=== PATIENT | female | born 1995 | race Caucasian/White ===

== ENCOUNTER 2019-01-15 04:31 | Emergency (ER) | payer OTHER ==
[2019-01-15] MEDS ORDERED: KETOROLAC TROMETHAMINE INJ/PF 30 MG/1 ML SDV IV ONE (04:52)
--- NOTE | 2019-01-15 04:58 | ER Document Report ---
HPI - HPI Time Seen by Provider: 01/15/19 04:45 Pain Level: 4 Context: Patient is a 23-year-old female that comes to the emergency department with chief complaint of sore throat and difficulty swallowing. She states that 2 days ago she was running fevers along with a sore throat as well, she states that she was seen by urgent care, had a negative strep throat test, and was placed on prednisone and Augmentin, she states she felt better after a dose of prednisone and 2 doses of Augmentin, however she woke up tonight feeling like her throat was significantly worse and she was having trouble swallowing. She denies abdominal pain, vomiting, difficulty breathing, inability to swallow, or any other complaints at this time. She denies any daily medications other than cyclobenzaprine, she denies . She denies any past medical history. at bedside. - REPRODUCTIVE LMP: curent Reproductive: DENIES: : Past Medical History - General Information source: Patient - Social History Smoking Status: Never Smoker Frequency of alcohol use: None Drug Abuse: None Lives with: Family Family History: Reviewed & Not Pertinent Patient has suicidal ideation: No Patient has homicidal ideation: No - Medical History Medical History: Negative Surgical Hx: Negative - Immunizations Immunizations up to date: Yes Hx Diphtheria, Pertussis, Tetanus Vaccination: Yes Vertical Provider Document - CONSTITUTIONAL General Appearance: WD/WN, No Apparent Distress - INFECTION CONTROL TRAVEL OUTSIDE OF THE [place] IN LAST 30 DAYS: No - HEENT HEENT: Atraumatic, Normocephalic. negative: Normal ENT Exam - Erythema with tonsillar swelling but not exudates noted over the tonsils and the uvula, no swelling suggesting abscess, patent airway. Normal tongue, normal ENT exam otherwise. Normal ears, sinuses, nasal passages, eyes. - NECK Neck: Other - Notable anterior cervical lymphadenopathy bilaterally, this is very noticeable but is not severely tender, no submandibular swelling. - RESPIRATORY Respiratory: Breath Sounds Normal, No Respiratory Distress - CARDIOVASCULAR Cardiovascular: Regular Rate, Regular Rhythm - GI/ABDOMEN Gastrointestinal: Abdomen Soft, Abdomen Non-Tender - BACK Back: Normal Inspection - MUSCULOSKELETAL/EXTREMETIES Musculoskeletal/Extremeties: MAEW, FROM, Non-Tender - NEURO Level of Consciousness: Awake, Alert, Appropriate - DERM Integumentary: Warm, Dry, No Rash Course - Re-evaluation Re-evalutation: Patient has tonsillitis, pharyngitis, rash over the uvula, but patent airway, able to swallow, no signs of peritonsillar abscess or Pepito's angina. Patient is actually quite well-appearing. She does have notable anterior cervical adenopathy. I do not appreciate a swollen spleen. No abdominal tenderness noted. She had a negative strep test. Given Toradol, this did seem to help patient. CBC unremarkable. test is negative. Mononucleosis test is positive. This is consistent with patient's presentation. I discussed in detail with patient. Patient will be given dexamethasone IV so she can stop her prednisone, patient also will be stopping her Augmentin after discussion, she states it was giving her diarrhea already. Discussed expectations, precautions, follow-up, and return precautions. Patient states appreciation and agreement. Stable at time of discharge. - Vital Signs Vital signs: Temp Pulse Resp BP Pulse Ox 97.3 F 73 16 124/70 100 01/15/19 04:37 01/15/19 04:37 01/15/19 04:37 01/15/19 04:37 01/15/19 04:37 - Laboratory Result Diagrams: 01/15/19 05:16 Discharge - Discharge Clinical Impression: Anterior cervical lymphadenopathy Mononucleosis Qualifiers: Infectious mononucleosis etiology: unspecified organism Infectious mononucleosis complication: without complication Qualified Code(s): B27.90 - Infectious mononucleosis, unspecified without complication Pharyngitis Qualifiers: Pharyngitis/tonsillitis etiology: unspecified etiology Qualified Code(s): J02.9 - Acute pharyngitis, unspecified Condition: Stable Disposition: HOME, SELF-CARE Additional Instructions: You have mononucleosis "mono". This is a viral illness that takes time to respond. You have been treated with dexamethasone which should help with the symptoms, drink plenty of fluids, rest, take Tylenol and ibuprofen for fever and pain. This can cause swelling of the spleen so you should follow contact precautions for the next 2 to 3 weeks with the potential complication of a ruptured spleen if you have trauma to the belly. This is contagious to avoid other people if possible especially while you are running fevers. Follow-up with primary care. Come back if you are worse including confusion, severe headache or pain in your neck, developing or severe abdominal pain, or any other concerning or worsening symptoms.
[2019-01-15 05:24] LABS: ABSOLUTE BASOPHILS # (AUTO) 0.1 10^3/uL (0.0-0.2); ABSOLUTE EOSINOPHILS # (AUTO) 0.5 10^3/uL (0.0-0.6); ABSOLUTE LYMPHOCYTES (AUTO) 2.9 10^3/uL (0.5-4.7); ABSOLUTE MONOCYTES (AUTO) 0.8 10^3/uL (0.1-1.4); ABSOLUTE NEUT (AUTO) 4.8 10^3/uL (1.7-8.2); BASOPHILS % (AUTO) 0.7 % (0-2); EOSINOPHILS % (AUTO) 5.1 % (0-6); HEMATOCRIT 35.5 % (36.0-47.0); LYMPHOCYTES % (AUTO) 32.1 % (13-45); MEAN CORPUSCULAR HEMOGLOBIN 28.2 pg (27.0-33.4); MEAN CORPUSCULAR HGB CONC 33.8 g/dL (32.0-36.0); MEAN CORPUSCULAR VOLUME 84 fl (80-97); MONOCYTES % (AUTO) 8.6 % (3-13); PLATELET COUNT 192 10^3/uL (150-450); RED BLOOD COUNT 4.25 10^6/uL (3.72-5.28); SEGMENTED NEUTROPHILS % (AUTO) 53.5 % (42-78); TOTAL CELLS COUNTED % (AUTO) 100 %; WHITE BLOOD COUNT 8.9 10^3/uL (4.0-10.5)
[2019-01-15] MEDS ORDERED: DEXAMETHASONE SOD PHOS INJ 10 MG/1 ML VIAL IV ONE (05:56)
[2019-01-15 06:23] VITALS: BP 111/77
== END 2019-01-15 06:29 | disposition home or self-care (01) ==
LOC: ER 04:31
DX: B27.90 Infectious mononucleosis, unspecified without complication (principal); J02.9 Acute pharyngitis, unspecified; R13.10 Dysphagia, unspecified
CPT/HCPCS: 36415; 84703; 85025; 86308; J1885; J1100

== ENCOUNTER 2019-01-17 10:10 | Emergency (ER) | payer OTHER ==
[2019-01-17] MEDS ORDERED: DIPHENHYDRAMINE HCL 50 MG/ML VIAL IV ONE (10:25)
[2019-01-17] MEDS ORDERED: FAMOTIDINE INJ/PF 20 MG/2 ML SDV IV ONE (10:25)
--- NOTE | 2019-01-17 10:28 | ER Document Report ---
ED Medical Screen (RME) - General Stated Complaint: FACIAL SWELLING, POSSIBLE RASH TRAVEL OUTSIDE OF THE [place] IN LAST 30 DAYS: No - HPI Notes: 01/17/19 10:26 Patient is a 23-year-old female no significant past medical history recently diagnosed with mono 2 days ago who presents complaining of swelling of the lips, face, ears, and scratchiness in her mouth and throat that started yesterday. Patient was given Decadron as well 2 days ago and stopped taking Augmentin at that time. She is able to eat and drink without difficulty otherwise. She has not had any wheezing. Denies WINSTON, fever, neck pain, URI, CP, SOB, Abd pain, dysuria, back pain. I have treated and performed a rapid initial assessment of this patient. A comprehensive ED assessment and evaluation of the patient, analysis of test results and completion of medical decision making process will be conducted by additional ED providers. PHYSICAL EXAMINATION: GENERAL: Well-appearing, well-nourished and in no acute distress. A&Ox4. Answers questions appropriately. LUNGS: Breath sounds clear to auscultation bilaterally and equal. No wheezes rales or rhonchi. HEART: Regular rate and rhythm without murmurs, rubs, gallops. HEENT: + swelling noted to the lips, ears, face. No obvious airway compromise. No protrusion of tongue. 2+ tonsilar hypertrophy. Past Medical History - Immunizations Immunizations up to date: Yes Hx Diphtheria, Pertussis, Tetanus Vaccination: Yes Physical Exam - Vital signs Vitals: Temp Pulse Resp BP Pulse Ox 98.6 F 85 18 126/75 H 100 01/17/19 10:14 01/17/19 10:14 01/17/19 10:14 01/17/19 10:14 01/17/19 10:14 Course - Vital Signs Vital signs: Temp Pulse Resp BP Pulse Ox 98.6 F 85 18 126/75 H 100 01/17/19 10:14 01/17/19 10:14 01/17/19 10:14 01/17/19 10:14 01/17/19 10:14
[2019-01-17] MEDS ORDERED: NORMAL SALINE 1000 ML 1,000 ML IV ONE (11:21)
[2019-01-17] MEDS ORDERED: METHYLPREDNISOLONE INJ 125 MG/2 ML SDV IV ONE (11:21)
--- NOTE | 2019-01-17 11:28 | ER Document Report ---
ED General - General Chief Complaint: Facial Swelling Stated Complaint: FACIAL SWELLING, POSSIBLE RASH Time Seen by Provider: 01/17/19 11:21 Notes: Patient is here because of facial swelling and rash. Patient was seen for a pharyngitis at a local urgent care on Sunday and was put on Augmentin. She came here on early Sunday morning and was told that she has mono. She was given some Decadron while here and stopped her Augmentin, but no other medications prescribed. Patient noticed her face was swelling yesterday morning and then she developed this rash around her cheeks last night. She does not have any worsening breathing or difficulty swallowing. Says she is drinking liquids. Voice is normal. Not sure if running a fever. TRAVEL OUTSIDE OF THE [place] IN LAST 30 DAYS: No - Related Data Allergies/Adverse Reactions: No Known Allergies Allergy (Unverified 01/17/19 10:33) Past Medical History - Social History Smoking Status: Never Smoker Chew tobacco use (# tins/day): No Family History: Reviewed & Not Pertinent Patient has suicidal ideation: No Patient has homicidal ideation: No - Immunizations Immunizations up to date: Yes Hx Diphtheria, Pertussis, Tetanus Vaccination: Yes Review of Systems - Review of Systems Notes: CONSTITUTIONAL : Denies fever. CARDIOVASCULAR: Denies chest pain. HEENT: See HPI. RESPIRATORY: Denies cough, chest congestion, or shortness of breath. GASTROINTESTINAL: Denies abdominal pain or nausea, vomiting, or diarrhea. GENITOURINARY: Denies difficulty or painful urinating, urinary frequency, blood in urine. Physical Exam - Vital signs Vitals: Temp Pulse Resp BP Pulse Ox 98.6 F 85 18 126/75 H 100 01/17/19 10:14 01/17/19 10:14 01/17/19 10:14 01/17/19 10:14 01/17/19 10:14 Interpretation: Normal Notes: PHYSICAL EXAMINATION: GENERAL: Well-appearing, no acute distress. Skin: Patient has a very faint flushed appearing erythematous rash in the cheek areas. HEAD: Atraumatic, normocephalic. ENT: Erythema of the posterior oropharynx and soft palate region, but no airway impingement. Not any significant exudates. Voice sounds normal. NECK: Normal range of motion, supple. Mild, tender adenopathy in the anterior portion of the neck. LUNGS: Breath sounds clear and equal bilaterally. HEART: Regular rate and rhythm without murmurs heard. ABDOMEN: Soft, nontender. No guarding or rebound or masses felt. Course - Re-evaluation Re-evalutation: 01/17/19 13:39 Facial redness improved. Patient had no worsening of any symptoms. Remains able to exchange air well without problems. - Vital Signs Vital signs: Temp Pulse Resp BP Pulse Ox 98.6 F 85 18 126/75 H 100 01/17/19 10:14 01/17/19 10:14 01/17/19 10:14 01/17/19 10:14 01/17/19 10:14 Discharge - Discharge Clinical Impression: Allergic reaction caused by a drug, Mononucleosis Condition: Stable Disposition: HOME, SELF-CARE Additional Instructions: ACUTE ALLERGIC REACTION: Your symptoms are due to an allergic reaction. Allergy can cause hives, swelling of the hands, feet, and face, hoarseness, and difficulty swallowing or breathing. It may be due to exposure to medication, animal dander, foods, infection, or insect bites. Medication is a common cause, even when prior use of this same medication caused no problems. Acute treatment may include adrenalin and antihistamines. Usually, the specific allergic agent can't be identified unless repeated episodes occur. Home treatment includes the following: (1) Stop any suspicious medications. This will be discussed with you. (2) Oral antihistamines for the next four to five days. Example, diphenhydramine (Benadryl) every four hours. (3) You may also use cimetidine (Tagamet), ranitidine (Zantac), or famotidine (Pepcid) every four hours if diphenhydramine is not controlling itching and hives. (4) Avoid aspirin until the hives completely disappear. (5) Avoid hot baths or showers until the hives are completely gone. Call the doctor if faintness, difficulty swallowing, tightness in the chest, or wheezing occurs. STEROID MEDICATION INJECTION: You have been given an injection of medicine of the cortisone/steroid class. This medication is used to control inflammation or allergy. It is often continued as a pill for a short period of time, until the acute process subsides. There are usually no side effects from short-term use of cortisone-like medications. Some persons feel an increased sense of well-being and are not sleepy at bedtime. Long-term use of cortisone medications is best avoided, unless required for a severe condition. If your condition does not remit, or relapses after the course of corticosteroid medication, you should consult your physician. STEROID MEDICATION: You have been given a medicine of the cortisone/steroid class. This medication is used to control inflammation or allergy. It is usually only given for a short period of time, until the acute process subsides. There are usually no side effects from short-term use of cortisone-like medications. Some persons feel an increased sense of well-being and are not sleepy at bedtime. Long-term use of cortisone medications is best avoided, unless required for a severe condition. If your condition does not remit, or relapses after the course of corticosteroid medication, you should consult your physician. ACID-SUPPRESSING MEDICATION: You have a prescription for medicine which reduces the stomach's secretion of acid. Examples include Zantac, Tagament, and Pepcid. These drugs are often used to allow healing of ulcers or esophagitis. They may be needed to prevent recurrence of ulcers in some patients, or to prevent damage from acid reflux in the esophagus. Take all medication as prescribed, even after the pain is gone. Regular antacids may be added as needed if you have symptoms while taking this medicine. These medications sometimes are prescribed for allergic reactions because they have anti-histaminic effects and relieve the rash and itching of the reaction. There are usually no side effects from this medication. But, in rare cases and particularly in the elderly, serious problems can occur. Contact your doctor if there is fever, rash, hallucinations, confusion, or unusual bruising. Contact your doctor at once if you develop lightheadedness, black or bloody stool, or bloody vomitus. ANTIHISTAMINES: An antihistamine has been given and/or prescribed to control your symptoms. Antihistamines are used for many reasons, including itching, watering eyes, runny nose, allergic swelling, hives, and insect stings. Antihistamines may cause drowsiness, especially with the first dose. Do not operate machinery or drive while under the effects of the medication. Other common side effects include dry mouth and eyes. In older persons, antihistamin es can occasionally cause urinary retention, constipation, and trouble focusing the eyes. Do not combine the medication with alcohol, or with any other medication without talking to your doctor. USE OF DIPHENHYDRAMINE: The use of diphenhydramine (Benadryl) has been recommended to control allergic symptoms. The 25 mg strength is available over- the-counter, as well as the elixir. This antihistamine is used for many symptoms. It's useful for itching, watering eyes and nose, allergic swelling, hives, and insect stings. The medication can be repeated four times daily. Age Elixir (12.5 mg/tsp) 25 mg pill 2-3 yr 1/2 tsp 4-8 yr 1 tsp 9-14 yr 2 tsp one tab adult 1-2 tabs Antihistamines may cause drowsiness, especially with the first dose. Do not operate machinery or drive while under the effects of the medication. Do not combine the medication with alcohol, or with any other medication without talking to your doctor. FOLLOW-UP CARE: If you have been referred to a physician for follow-up care, call the physicians office for an appointment as you were instructed or within the next two days. If you experience worsening or a significant change in your symptoms, notify the physician immediately or return to the Emergency Department at any time for re-evaluation. Take [id number] Benadryl, 25 mg tablets, 1 tablet 2-4 times a day as needed for allergic reaction. Take [id number] Pepcid, I think they are 10 mg pills, but take 20 mg 3 or 4 times a day. I am giving you a prescription for 3 days of prednisone to take starting tomorrow. Come back at any time if you have difficulty swallowing or breathing. Prescriptions: Prednisone [Deltasone 20 mg Tablet] 3 tab PO DAILY 3 Days #9 tablet
[2019-01-17 14:16] VITALS: BP 130/78
== END 2019-01-17 14:15 | disposition home or self-care (01) ==
LOC: ER 10:10
DX: T38.0X5A Adverse effect of glucocorticoids and synthetic analogues, initial encounter (principal); B27.90 Infectious mononucleosis, unspecified without complication; R22.0 Localized swelling, mass and lump, head; R21 Rash and other nonspecific skin eruption; Y92.238 Other place in hospital as the place of occurrence of the external cause
CPT/HCPCS: J1200; J2930; J7030; S0028; 96361; 96374; 96375; 99283

== ENCOUNTER 2019-06-20 20:31 | Emergency (ER) | payer OTHER ==
[2019-06-20] MEDS ORDERED: METOCLOPRAMIDE HCL INJ/PF 10 MG/2 ML SDV IV ONE ×2 (21:20→23:45)
[2019-06-20] MEDS ORDERED: NORMAL SALINE 1000 ML 1,000 ML IV ONE ×2 (21:20→21:24)
--- NOTE | 2019-06-20 21:22 | ER Document Report ---
ED Medical Screen (RME) - General Chief Complaint: Vomiting Stated Complaint: VOMITING-13 WEEKS PREG Time Seen by Provider: 06/20/19 21:18 Mode of Arrival: Ambulatory Information source: Patient Notes: Patient is a 23-year-old female patient presenting to the emergency department chief complaint of vomiting in the setting of . Patient reports she has been vomiting for the last 3 days consistently. She states she cannot even keep down liquids. She denies any abdominal pain, vaginal bleeding or abnormal vaginal discharge. Abdomen soft, nontender no guarding no rebound. I have greeted and performed a rapid initial assessment of this patient. A comprehensive ED assessment and evaluation of the patient, analysis of test results and completion of the medical decision making process will be conducted by additional ED providers. I have specifically instructed the patient or family members with the patient to immediately return to any nursing staff should anything change in the patient's condition or with their chief complaint. TRAVEL OUTSIDE OF THE [place] IN LAST 30 DAYS: No - Related Data Allergies/Adverse Reactions: No Known Allergies Allergy (Unverified 01/17/19 10:33) Past Medical History - Immunizations Immunizations up to date: Yes Hx Diphtheria, Pertussis, Tetanus Vaccination: Yes Physical Exam - Vital signs Vitals: Temp Pulse Resp BP Pulse Ox 97.9 F 124 H 20 128/79 H 97 06/20/19 20:35 06/20/19 20:35 06/20/19 20:35 06/20/19 20:35 06/20/19 20:35 Course - Vital Signs Vital signs: Temp Pulse Resp BP Pulse Ox 97.9 F 124 H 20 128/79 H 97 06/20/19 20:35 06/20/19 20:35 06/20/19 20:35 06/20/19 20:35 06/20/19 20:35
[2019-06-20 21:58] LABS: ABSOLUTE LYMPHOCYTES (AUTO) 1.6 10^3/uL (0.5-4.7); ABSOLUTE MONOCYTES (AUTO) 0.4 10^3/uL (0.1-1.4); ABSOLUTE NEUT (AUTO) 9.6 10^3/uL (1.7-8.2); BASOPHILS % (AUTO) 0.4 % (0-2); EOSINOPHILS % (AUTO) 0.2 % (0-6); HEMATOCRIT 39.6 % (36.0-47.0); HEMOGLOBIN 13.6 g/dL (12.0-15.5); LYMPHOCYTES % (AUTO) 13.7 % (13-45); MEAN CORPUSCULAR HEMOGLOBIN 28.4 pg (27.0-33.4); MEAN CORPUSCULAR HGB CONC 34.3 g/dL (32.0-36.0); MEAN CORPUSCULAR VOLUME 83 fl (80-97); MONOCYTES % (AUTO) 3.3 % (3-13); PLATELET COUNT 265 10^3/uL (150-450); RED BLOOD COUNT 4.77 10^6/uL (3.72-5.28); RED CELL DISTRIBUTION WIDTH 13.4 % (11.5-14.0); SEGMENTED NEUTROPHILS % (AUTO) 82.4 % (42-78); TOTAL CELLS COUNTED % (AUTO) 100 %; WHITE BLOOD COUNT 11.6 10^3/uL (4.0-10.5)
[2019-06-20 22:58] LABS: ALBUMIN 4.4 g/dL (3.5-5.0); ALKALINE PHOSPHATASE 78 U/L (38-126); ANION GAP 13 (5-19); ASPARTATE AMINO TRANSFERASE 18 U/L (14-36); BILIRUBIN,DIRECT 0.2 mg/dL (0.0-0.4); BILIRUBIN,TOTAL 0.6 mg/dL (0.2-1.3); BLOOD UREA NITROGEN 9 mg/dL (7-20); CALCIUM 9.8 mg/dL (8.4-10.2); CARBON DIOXIDE 22 mmol/L (22-30); CHLORIDE 103 mmol/L (98-107); GLUCOSE 87 mg/dL (75-110); POTASSIUM 4.3 mmol/L (3.6-5.0); TOTAL PROTEIN 7.8 g/dL (6.3-8.2)
[2019-06-21 00:15] LABS: APPEARANCE,URINE CLOUDY; BILIRUBIN,URINE NEGATIVE (NEGATIVE); COLOR,URINE YELLOW; GLUCOSE, URINE NEGATIVE (NEGATIVE); KETONES,URINE 80 mg/dL (NEGATIVE); PROTEIN,URINE 30 mg/dL (NEGATIVE); URINE SPECIFIC GRAVITY 1.027; UROBILINOGEN,URINE NEGATIVE mg/dL (<2.0)
[2019-06-21] MEDS ORDERED: CEPHALEXIN 500 MG CAPSULE PO ONE (02:15)
--- NOTE | 2019-06-21 02:21 | ER Document Report ---
ED GI/ - General Chief Complaint: Vomiting Stated Complaint: VOMITING-13 WEEKS PREG Time Seen by Provider: 06/20/19 21:18 Primary Care Provider: JAMEY EVANS PA-C [Primary Care Provider] - Follow up as needed Mode of Arrival: Ambulatory Notes: Patient is a 23-year-old female, at 13 weeks gestation by first trimester ultrasound, that comes to the emergency department for chief complaint of persistent vomiting for the past 3 days. She states she has and intermittent morning sickness but she has been much worse over the past 3 days. She denies particular area of abdominal pain or current abdominal pain, denies vaginal bleeding or discharge, denies dysuria or fever. She denies flank pain or abdominal injury. She denies any other complaints. She takes vitamins but no other medications, she states she was on Reglan but she ran out and she has not been able to get up with [facility] to refill her prescription. She states this was working. TRAVEL OUTSIDE OF THE [place] IN LAST 30 DAYS: No - HPI heart tones (bpm): 166 - Related Data Allergies/Adverse Reactions: No Known Allergies Allergy (Unverified 01/17/19 10:33) Past Medical History - General Information source: Patient - Social History Smoking Status: Never Smoker Frequency of alcohol use: None Drug Abuse: None Lives with: Family Family History: Reviewed & Not Pertinent Patient has suicidal ideation: No Patient has homicidal ideation: No Surgical Hx: Negative - Immunizations Immunizations up to date: Yes Hx Diphtheria, Pertussis, Tetanus Vaccination: Yes Review of Systems - Review of Systems Constitutional: No symptoms reported EENT: No symptoms reported Cardiovascular: No symptoms reported Respiratory: No symptoms reported Gastrointestinal: See HPI Genitourinary: No symptoms reported Female Genitourinary: See HPI Musculoskeletal: No symptoms reported Skin: No symptoms reported Hematologic/Lymphatic: No symptoms reported Neurological/Psychological: No symptoms reported Physical Exam - Vital signs Vitals: Temp Pulse Resp BP Pulse Ox 97.9 F 124 H 20 128/79 H 97 06/20/19 20:35 06/20/19 20:35 06/20/19 20:35 06/20/19 20:35 06/20/19 20:35 - Notes Notes: GENERAL: Alert, interacts well. No acute distress. HEAD: Normocephalic, atraumatic. EYES: Pupils equal, round, and reactive to light. Extraocular movements intact. ENT: Oral mucosa moist, tongue midline. Oropharynx unremarkable. Airway patent. NECK: Full range of motion. Supple. Trachea midline. LUNGS: Clear to auscultation bilaterally, no wheezes, rales, or rhonchi. No respiratory distress. HEART: Patient is not tachycardic on my exam. Normal rhythm. No murmur. ABDOMEN: Soft, non-tender. Non-distended. Bowel sounds present in all 4 quadrants. GENITOURINARY: Deferred EXTREMITIES: Moves all 4 extremities spontaneously. No edema, normal radial and dorsalis pedis pulses bilaterally. No cyanosis. BACK: no cervical, thoracic, lumbar midline tenderness. No saddle anesthesia, normal distal neurovascular exam. Moves all extremities in full range of motion. NEUROLOGICAL: Alert and oriented x3. Normal speech. Cranial nerves II through XII grossly intact. PSYCH: Normal affect, normal mood. SKIN: Warm, dry, normal turgor. No rashes or lesions noted. Course - Re-evaluation Re-evalutation: On my exam patient has no complaints, she has received IV fluids and nausea medication (Reglan), she states she feels great. Tachycardia initially in triage has resolved. She has been able to tolerate p.o. without any difficulty. CBC shows mild leukocytosis, nonspecific. Abdomen is completely soft and benign. She has no bleeding. Chemistry nonspecific. Urine shows dehydration and possible developing infection. Culture placed. Discussed with patient. She will be treated for potential UTI, provided with nausea medications, she will follow-up with [facility] and she will return if she worsens. Patient states appreciation and agreement. Smiling, stable, well-appearing at time of discharge. - Vital Signs Vital signs: Temp Pulse Resp BP Pulse Ox 98.4 F 85 16 126/82 H 100 06/21/19 02:27 06/21/19 02:27 06/21/19 02:27 06/21/19 02:27 06/21/19 02:27 - Laboratory Result Diagrams: 06/20/19 21:25 06/20/19 21:25 Laboratory results interpreted by me: 06/20/19 06/20/19 06/21/19 21:25 21:25 00:00 WBC 11.6 H Absolute Neuts (auto) 9.6 H Seg Neutrophils % 82.4 H Creatinine 0.42 L Urine Protein 30 H Urine Ketones 80 H Leukocyte Esterase Rfl TRACE H Urine Ascorbic Acid 40 H Discharge - Discharge Clinical Impression: Hyperemesis gravidarum, Dehydration Condition: Stable Disposition: HOME, SELF-CARE Additional Instructions: Your work-up indicates dehydration, you have been treated for this, continue hydration at home. Take Reglan if needed for vomiting, you can take diphenhydramine with this. Start with bland food and slowly progress. Follow- up with [facility] for additional management. We are covering you for suspected developing urinary tract infection, take Keflex as prescribed to completion. Return if you worsen including uncontrolled vomiting, severe abdominal pain, spiking fever, or any other concerning or worsening symptoms. Prescriptions: Cephalexin Monohydrate [Keflex 500 mg Capsule] 500 mg PO BID 7 Days #14 capsule Metoclopramide HCl [Reglan] 5 mg PO ASDIR PRN #30 tablet PRN Reason: Referrals: JAMEY EVANS PA-C [Primary Care Provider] - Follow up as needed
[2019-06-21 02:27] VITALS: BP 126/82
== END 2019-06-21 02:28 | disposition home or self-care (01) ==
LOC: ER 20:31
DX: O21.0 Mild hyperemesis gravidarum (principal); O26.891 Other specified pregnancy related conditions, first trimester; E86.0 Dehydration; Z3A.13 13 weeks gestation of pregnancy
CPT/HCPCS: 99283; 96361; 96374; 36415; 87086; 85025; 80053; 81001; J2765; J7030